=== PATIENT | female | born 2000 ===

== ENCOUNTER 2024-02-16 19:26 | Emergency (ER) | payer OTHER ==
[~2024-02-16] VITALS: Ht 154.9 cm; Wt 52.3 kg
[2024-02-16 19:37] VITALS: BP 105/65; PULSE 87; RESP 18; TEMP 98.9; O2SAT 97
[2024-02-16] MEDS ORDERED: FEXO-353 PO (19:44)
[2024-02-16] MEDS ORDERED: PRED-554 PO (21:16)
[2024-02-16] MEDS: PredniSONE 20 MG TABLET PO ONE (21:28)
== END 2024-02-16 21:54 | disposition home or self-care (01) ==
LOC: EMS 19:26
DX: T78.49XA Other allergy, initial encounter (principal); Z91.010 Allergy to peanuts; Z91.048 Other nonmedicinal substance allergy status; X58.XXXA Exposure to other specified factors, initial encounter
CPT/HCPCS: 99283; J7512

== ENCOUNTER 2024-04-01 15:41 | Emergency (ER) | payer OTHER ==
[~2024-04-01] VITALS: Ht 152.4 cm; Wt 50.0 kg
[~2024-04-01 15:41] MED LIST: FEXO-353 PO; PRED-554 PO
[2024-04-01 15:43] VITALS: BP 104/62; PULSE 82; RESP 16; TEMP 98.7; O2SAT 100
== END 2024-04-01 17:21 | disposition left against medical advice (07) ==
LOC: EMS 15:41
DX: R10.2 Pelvic and perineal pain (principal); Z53.21 Procedure and treatment not carried out due to patient leaving prior to being seen by health care provider